=== PATIENT | female | born 1965 | race Caucasian/White ===

== ENCOUNTER 2018-04-01 13:41 | Observation (INO) ==
--- NOTE | 2018-04-01 14:01 | Cat Scan Report ---
History: Acute stroke symptoms TECHNIQUE: The brain was imaged without contrast at 2.5 mm intervals. Radiation exposure was limited using dose reduction technology. FINDINGS: The brain appears normal without evidence of hemorrhage, infarct, edema or mass effect. No degenerative change is present. The ventricles and cisterns are normal. Comparison with the recent brain MRI done on 02/25/18 shows no significant change. IMPRESSION: Normal unenhanced brain CT Dr. Power was called with results at 1:56 PM Interpreted and Authenticated by: Antonio Davies 04/01/18
[2018-04-01 14:30] LABS: Basophils # (Auto) 0 K/mcL (0.0-0.3); Basophils % (Auto) 0.6 % (0.0-2.0); Eosinophils # (Auto) 0.1 K/mcL (0.0-0.7); Eosinophils % (Auto) 2.3 % (0.0-7.0); Granulocytes % (Auto) 61.3 % (38.0-78.0); Lymphocytes # (Auto) 1.2 K/mcL (1.5-4.8); Lymphocytes % (Auto) 28.1 % (15.5-49.0); Mean Corpuscular HGB Conc 33.5 g/dL (31.0-36.0); Mean Corpuscular Hemoglobin 30.2 pg (26.0-34.0); Monocytes # (Auto) 0.3 K/mcL (0.1-0.9); Monocytes % (Auto) 7.7 % (1.0-12.0); Platelet Count 237 K/mcL (140-440); Red Cell Distribution Width 14.1 % (11.5-14.5)
[2018-04-01 14:53] LABS: ALT/SGPT 11 U/l (0-40); Albumin 4.3 gm/dL (3.2-5.2); Albumin/Globulin Ratio 1.6 (1.0-2.3); Alkaline Phosphatase 87 U/L (39-117); Blood Urea Nitrogen 12 mg/dl (6-20)
--- NOTE | 2018-04-01 15:09 | Emergency Department Note ---
Neuro HPI - General Chief Complaint: Stroke Symptoms Stated Complaint: Neuro Deficits Time Seen by Provider: 04/01/18 13:51 Source: patient, EMS Mode of arrival: ambulatory Limitations: altered mental status - History of Present Illness HPI Narrative: 52-year-old female is brought in after her caregiver called ambulance. Apparently she was having some trouble last night with slurred speech and increasing weakness and her son try to call an ambulance but they did not think she needed to come in. Anyways she has a history of CVA with residual right- sided weakness but this morning was more profound when her caregiver came in at 1130. I am seeing her about 2 hours later the symptoms have essentially resolved however she does have residual right-sided weakness of the arm and leg. EMS corroborates this and reports that her symptoms are much improved. She additionally has slurred speech and some confusion which again have both improved-however it is still difficult for me to understand her-most history and review of systems are from caregiver at [facility]. NIH scale here is 1. Denies recent illness but she is having some nausea. She is on multiple psychiatric medicines for schizophrenia. - Related Data Home Medications: Home Medications Medication Instructions Recorded Confirmed Citalopram Hydrobromide [Celexa] 20 mg PO DAILY 02/26/15 04/01/18 olanzapine 10 mg tablet 10 mg PO BID 11/23/17 04/01/18 sennosides 8.6 mg-docusate sodium 1 tab PO QHS PRN 11/23/17 04/01/18 50 mg tablet trihexyphenidyl 5 mg tablet 5 mg PO HS 11/23/17 04/01/18 Acetaminophen [Tylenol] 325 mg PO Q4-6HP PRN 04/01/18 04/01/18 Aspirin [Aspirin EC] 81 mg PO DAILY 04/01/18 04/01/18 Polyethylene Glycol 3350 [Miralax] 17 gm PO DAILY 04/01/18 04/01/18 hydrOXYzine [Atarax] 25 mg PO QIDP PRN 04/01/18 04/01/18 Allergies/Adverse Reactions: Allergies Allergy/AdvReac Type Severity Reaction Status Date / Time divalproex sodium AdvReac Unknown Other Verified 02/25/18 11:45 [From [facility]] Review of Systems All systems ED: reviewed and negative except as stated. Past Medical History - Past Medical History Attestation: Yes: The following information was validated with the patient. 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 Flat affect. Mild angular colitis. Pallor. Conjunctive are clear sclerae nonicteric. No nasal discharge or congestion. Oropharynx with dry buccal mucosa. Posterior pharynx is clear. Neck is supple without lymphadenopathy or thyromegaly. No carotid bruit. Heart is regular rate and rhythm no murmur. Lungs are clear to auscultation bilaterally without wheezes rales rhonchi or respiratory distress. Abdomen soft nontender nondistended. No peritoneal signs or rigidity. +2 radial pulse. No pedal edema. Flat affect. Slurred speech unclear if this baseline very difficult to understand. Face is symmetrical. Pupils are reactive and otherwise cranial nerves are normal. Limitations: altered mental status Course Vital Signs Pulse Rate 78 04/01/18 13:43 Respiratory Rate 18 04/01/18 13:43 Pulse Oximetry (%) 99 04/01/18 13:43 Temperature 96.8 F L 04/02/18 08:30 Pulse Rate 64 04/02/18 08:30 Respiratory Rate 16 04/02/18 08:30 Blood Pressure 111/62 04/02/18 08:30 Pulse Oximetry (%) 96 04/02/18 08:30 Neuro Symptoms/Deficit - Lab Data Lab results reviewed: Yes I reviewed the patient's lab results. Result diagrams: 04/02/18 03:50 04/02/18 03:50 Lab Results 04/01/18 04/01/18 04/01/18 Range/Units 14:05 14:05 14:05 WBC 4.2 L (4.5-11.0) K/mcL RBC 4.70 (4.00-5.20) M/mcL Hgb 14.2 (12.0-15.0) g/dL Hct 42.3 (36.0-48.0) % POC Hct 41.0 (36.0-48.0) % MCV 90.0 (80.0-100.0) fL MCH 30.2 (26.0-34.0) pg MCHC 33.5 (31.0-36.0) g/dL RDW 14.1 (11.5-14.5) % Plt Count 237 (140-440) K/mcL MPV 8.9 (7.4-10.4) fL Gran % 61.3 (38.0-78.0) % Lymph % (Auto) 28.1 (15.5-49.0) % Stevens % (Auto) 7.7 (1.0-12.0) % Eos % (Auto) 2.3 (0.0-7.0) % Baso % (Auto) 0.6 (0.0-2.0) % Gran # 2.5 (1.8-8.0) K/mcL Lymph # (Auto) 1.2 L (1.5-4.8) K/mcL Stevens # (Auto) 0.3 (0.1-0.9) K/mcL Eos # (Auto) 0.1 (0.0-0.7) K/mcL Baso # (Auto) 0 (0.0-0.3) K/mcL POC PT 12.0 (11.9-14.5) sec POC INR 1.0 (0.9-1.2) APTT 26 (20-37) sec POC Sodium 141 (133-145) mmol/L Sodium 142 (133-145) mmol/L POC Potassium 4.2 (3.3-5.1) mmol/L Potassium 4.4 (3.3-5.1) mmol/L POC Chloride 106 (96-108) mmol/L Chloride 105 (96-108) mmol/L Carbon Dioxide 28 (22-30) mmol/L POC Total CO2 27 (22-30) mmol/L Anion Gap 9.0 (8-16) POC BUN 12 (6-20) mg/dl BUN 12 (6-20) mg/dl Creatinine 0.7 (0.6-1.1) mg/dl POC Creatinine 0.8 (0.6-1.1) mg/dl GFR Calculation 99 Glucose 91 (70-105) mg/dL POC Glucose 92 (70-105) mg/dL Calcium 9.5 (8.6-10.4) mg/dl POC WB Ioniz Calcium 1.20 (1.16-1.32) mmol/L Total Bilirubin 0.6 (0.0-1.0) mg/dL AST 12 (0-37) U/l ALT 11 (0-40) U/l Alkaline Phosphatase 87 (39-117) U/L Troponin T (0-0.03) ng/ml Total Protein 7.0 (5.9-8.4) gm/dL Albumin 4.3 (3.2-5.2) gm/dL Globulin 2.7 (2.2-3.7) gm/dL Albumin/Globulin Ratio 1.6 (1.0-2.3) Urine Color Urine Appearance Urine pH (5.0-9.0) Ur Specific [place] (1.000-1.035) Urine Protein (NEG) mg/dL Urine Glucose (UA) (NEG) mg/dL Urine Ketones (NEG) mg/dL Urine Occult Blood (<0.03) mg/dL Urine Nitrate (NEG) Urine Bilirubin (NEG) mg/dL Urine Urobilinogen (NEG) mg/dL Ur Leukocyte Esterase (NEG) /uL Ur Culture Indicated? 04/01/18 04/01/18 Range/Units 14:05 15:55 WBC (4.5-11.0) K/mcL RBC (4.00-5.20) M/mcL Hgb (12.0-15.0) g/dL Hct (36.0-48.0) % POC Hct (36.0-48.0) % MCV (80.0-100.0) fL MCH (26.0-34.0) pg MCHC (31.0-36.0) g/dL RDW (11.5-14.5) % Plt Count (140-440) K/mcL MPV (7.4-10.4) fL Gran % (38.0-78.0) % Lymph % (Auto) (15.5-49.0) % Stevens % (Auto) (1.0-12.0) % Eos % (Auto) (0.0-7.0) % Baso % (Auto) (0.0-2.0) % Gran # (1.8-8.0) K/mcL Lymph # (Auto) (1.5-4.8) K/mcL Stevens # (Auto) (0.1-0.9) K/mcL Eos # (Auto) (0.0-0.7) K/mcL Baso # (Auto) (0.0-0.3) K/mcL POC PT (11.9-14.5) sec POC INR (0.9-1.2) APTT (20-37) sec POC Sodium (133-145) mmol/L Sodium (133-145) mmol/L POC Potassium (3.3-5.1) mmol/L Potassium (3.3-5.1) mmol/L POC Chloride (96-108) mmol/L Chloride (96-108) mmol/L Carbon Dioxide (22-30) mmol/L POC Total CO2 (22-30) mmol/L Anion Gap (8-16) POC BUN (6-20) mg/dl BUN (6-20) mg/dl Creatinine (0.6-1.1) mg/dl POC Creatinine (0.6-1.1) mg/dl GFR Calculation Glucose (70-105) mg/dL POC Glucose (70-105) mg/dL Calcium (8.6-10.4) mg/dl POC WB Ioniz Calcium (1.16-1.32) mmol/L Total Bilirubin (0.0-1.0) mg/dL AST (0-37) U/l ALT (0-40) U/l Alkaline Phosphatase (39-117) U/L Troponin T < 0.01 (0-0.03) ng/ml Total Protein (5.9-8.4) gm/dL Albumin (3.2-5.2) gm/dL Globulin (2.2-3.7) gm/dL Albumin/Globulin Ratio (1.0-2.3) Urine Color Straw Urine Appearance Hazy Urine pH 8.0 (5.0-9.0) Ur Specific [place] 1.008 (1.000-1.035) Urine Protein Neg (NEG) mg/dL Urine Glucose (UA) Negative (NEG) mg/dL Urine Ketones Neg (NEG) mg/dL Urine Occult Blood Neg (<0.03) mg/dL Urine Nitrate Neg (NEG) Urine Bilirubin Neg (NEG) mg/dL Urine Urobilinogen Neg (NEG) mg/dL Ur Leukocyte Esterase Neg (NEG) /uL Ur Culture Indicated? No - Radiology Data Radiology results reviewed: Yes I reviewed the patient's radiology results. CT the head is negative for acute pathology. Chest x-ray no acute cardia pulmonary disease - EKG Data EKG attestation: Yes I reviewed and interpreted this EKG. EKG results narrative: EKG shows a rate of 68 borderline long QT but otherwise no evidence of ischemia Disposition Pt seen by TOUR CONSULTANT/PA only: No Clinical Impression: TIA (transient ischemic attack), Slurred speech Summary: Her symptoms have resolved and her NIH score was 1-most likely a TIA. ABCD2 to score was 5 please see nursing documentation. On review of her record it does appear that there is been 2 prior episodes like this and she does have residual right-sided weakness on initial exam. Concerned that she needs further workup and inpatient care. Discussed her case with Dr. Lang, neuro telestroke, who agreed the patient should be kept here for further workup and did not need TPA or urgent transfer. Discussed her case with Dr. Echols the hospitalist who agreed to accept the patient for further care and evaluation Disposition: Xfer As Inpt ([facility]) Condition: Fair
[2018-04-01 16:48] LABS: Appearance,Urine HAZY; Bilirubin,Urine NEG (NEG); Color,Urine STRAW; Glucose,Urine (UA) NEGATIVE (NEG); Leukocyte Esterase,Urine NEG /uL (NEG); Protein,Urine NEG (NEG); Specific Gravity,Urine 1.008 (1.000-1.035); Urine Blood NEG mg/dL (<0.03); Urobilinogen,Urine NEG (NEG)
--- NOTE | 2018-04-01 17:12 | Internal Med History&Physical ---
Medical - H&P: HPI Patient information: Note initiated : 04/01/18 at 5:08 pm Service Date, if different from initiated Date: [] Patient: Elizabeth Portillo a 52 y/o F admitted on for Neuro Deficits. Chief Complaint: [] History of present illness: Ms. Portillo is a 52 year old F with h/o cva in the past, ? 3 yrs ago, schizophrenia, presents to the ER for evaluation of weakness. The history is obtained by speaking with the patient and the patients son. The history provided by the ER provider/ EMS is diffrerent than the history provided to me. The patient speaks softly but rapidly and is difficult to understand her clearly at times. The patient notes that she was weak last night, confused? she was unable to raise both hands, felt like a stroke? EMS Was called and she was evaluated .By the time EMS arrived and was checking her, her symptoms had resolved. She refused to to to the ER last night, as her symptoms had resolved? This morning the day care center director noted that the patient was weak again, no neurological deficit reported to me, but had some left sided sharp chest and therefore she decided to come to the ER. According to the ER provider/ EMS the patient was brought in for altered mental status with some drooling, she definitely had right-sided weakness by the evaluation by the ED provider. This has completely resolved. NIH score was 1 In the ER patient was afebrile, hemodynamically stable, White count 4.2, hemoglobin 14 platelet 237, INR 1.0, electrolytes unremarkable urine analysis negative EKG was normal sinus rhythm no acute ST-T wave changes head CT was negative. Patient has had some neurological symptoms in the past MRI head was negative. She seems not to be on aspirin or statin. All systems: reviewed and no additional remarkable complaints except as stated ( as per HPI) Medical - H&P: PMH Medical history: schizophrenia htn cva ? Pertinent family history: mother with heart issues? Social history: lives with help at home non smoker no etoh no recreational drugs Medical - H&P: Meds Home Medications Medication Instructions Recorded Confirmed Type Citalopram Hydrobromide [Celexa] 20 mg PO DAILY 02/26/15 04/01/18 History olanzapine 10 mg tablet 10 mg PO BID 11/23/17 04/01/18 History sennosides 8.6 mg-docusate sodium 1 tab PO QHS PRN 11/23/17 04/01/18 History 50 mg tablet trihexyphenidyl 5 mg tablet 5 mg PO HS 11/23/17 04/01/18 History hydrOXYzine [Atarax] 25 mg PO QIDP PRN 04/01/18 04/01/18 History Allergies Allergy/AdvReac Type Severity Reaction Status Date / Time divalproex sodium AdvReac Unknown Other Verified 02/25/18 11:45 [From [facility]] Medical - H&P: Exam - Constitutional Vitals: Temp Pulse Resp BP Pulse Ox 97.9 F 62 18 144/89 98 04/01/18 16:22 04/01/18 16:31 04/01/18 16:31 04/01/18 16:31 04/01/18 16:31 Exam: GENERAL: The patient is a well-developed, well-nourished in no apparent distress. Is alert and oriented x3. VITAL SIGNS: Reviewed and as noted elsewhere. HEENT: Head is normocephalic and atraumatic. Extraocular muscles are intact. Pupils are equal, round, and reactive to light. Nares appeared normal. Mouth appears any without lesions. Mucous membranes are moist. NECK: Normal to inspection, Supple, No lymphadenopathy or thyromegaly. LUNGS: Air entry equal on both sides, no wheezing, crackles or rhonchi noted. No accessory muscles of respiration HEART: Regular rate and rhythm normal, S1 and S2 heard, no Gallop, S3 or Rub Noted, No Gross murmur heard. ABDOMEN: Soft, nontender, and nondistended. Positive bowel sounds. No hepatosplenomegaly was noted. EXTREMITIES: No cyanosis, clubbing, rash, lesions or edema. NEUROLOGIC: Cranial nerves II through XII are intact. upper extremity 5/5, lower extremity 5/5, DTR knee, bicepts and brachioradialist 2++, tone normal, normal coordination. Masked facies. PSYCHIATRIC: flat affect,no agitation. SKIN: No ulceration or wounds noted, No jaundice, No rash noted. Medical - H&P: Reslt - Labs CBC & Chem 7: 04/01/18 14:05 04/01/18 14:05 Labs: Short CBC 04/01/18 Range/Units 14:05 WBC 4.2 L (4.5-11.0) K/mcL Hgb 14.2 (12.0-15.0) g/dL Hct 42.3 (36.0-48.0) % Plt Count 237 (140-440) K/mcL BMP 04/01/18 14:05 Sodium 142 Potassium 4.4 Chloride 105 Carbon Dioxide 28 BUN 12 Creatinine 0.7 Glucose 91 Calcium 9.5 Cardiac Enzymes 04/01/18 Range/Units 14:05 Troponin T < 0.01 (0-0.03) ng/ml Liver Function 04/01/18 Range/Units 14:05 Total Bilirubin 0.6 (0.0-1.0) mg/dL AST 12 (0-37) U/l ALT 11 (0-40) U/l Alkaline Phosphatase 87 (39-117) U/L Albumin 4.3 (3.2-5.2) gm/dL Urine 04/01/18 Range/Units 15:55 Urine Color Straw Urine Appearance Hazy Urine pH 8.0 (5.0-9.0) Ur Specific [place] 1.008 (1.000-1.035) Urine Protein Neg (NEG) mg/dL Urine Glucose (UA) Negative (NEG) mg/dL Medical - H&P: A/P - Narrative A/P Narrative: A/P Altered mental status- resolved, etiology? tia ? TIA?- no clear history to suggest neurovascular involvement, however given ER provider noting that there was a right sided weakness, will monitor and expedite workup for TIA/ CVA, NEck and head CTA, Echo and monitor on tele, check tsh, a1c lpid panel asa 81 and statin atorvastatin for secondary cva prophylaxis. 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 dvt hep Full code Cardiac diet. OT/PT/ST eval
[2018-04-01] MEDS ORDERED: IOPAMIDOL 100 ML BOTTLE IV ONE (17:26)
[2018-04-01] MEDS ORDERED: ACETAMINOPHEN 325 MG TABLET PO PRN (17:45)
[2018-04-01] MEDS ORDERED: ONDANSETRON 4 MG/2 ML VIAL IV PRN (17:45)
[2018-04-01] MEDS ORDERED: NALOXONE HCL 0.4 MG/ML VIAL IV PRN (17:45)
--- NOTE | 2018-04-01 18:52 | Cat Scan Report ---
History: New stroke symptoms TECHNIQUE: 80 cc of Isovue-370 was injected intravenously. Arterial phase images were acquired from the aortic arch to the top of the head. Reconstructions were created of the head and neck separately using sagittal, coronal and MIPS projections. FINDINGS: There is a small plaque along the top of the aortic arch. The aorta is normal in caliber. Great vessels arising from the aorta are normal. The common carotids and carotid bifurcations are normal without evidence of plaque formation, stenosis or occlusion. Internal and external carotids are normal and symmetric. The vertebral arteries are also normal. Incidentally noted is a 2.4 x 2.5 cm partially cystic well-circumscribed mass in the left lobe of the thyroid. No adenopathy is present in the neck. Head: The intracranial arterial circulation is normal without evidence of stenosis, vascular occlusion, aneurysm or vascular malformation. No enhancing lesion is present within the brain. No infarct is detected. There is also no hemorrhage or mass. The ventricles are normal in size. IMPRESSION: Normal CT angiogram of the head and neck. 2.4 x 2.5 cm nodule in the left lobe of the thyroid. This is probably a degenerating adenoma Interpreted and Authenticated by: Antonio Davies 04/01/18
[2018-04-01] MEDS ORDERED: hydrOXYzine 25 MG TABLET PO PRN (20:09)
[2018-04-01] MEDS ORDERED: POLYETHYLENE GLYCOL 3350 17 GM PACKET PO PRN (20:14)
[2018-04-01] MEDS: HEPARIN 5,000 UNIT/ML VIAL SQ SCH (20:48)
[2018-04-01] MEDS: ATORVASTATIN 20 MG TABLET PO SCH (20:48)
[2018-04-01] MEDS: 0.9 % SODIUM CHLORIDE 10 ML SYRINGE IV SCH (20:49)
[2018-04-01] MEDS: OLANZapine 5 MG TABLET PO SCH (20:49)
[2018-04-02 05:18] LABS: Basophils # (Auto) 0 K/mcL (0.0-0.3); Basophils % (Auto) 0.7 % (0.0-2.0); Eosinophils # (Auto) 0.2 K/mcL (0.0-0.7); Eosinophils % (Auto) 2.9 % (0.0-7.0); Granulocytes % (Auto) 53.1 % (38.0-78.0); Lymphocytes # (Auto) 2.1 K/mcL (1.5-4.8); Lymphocytes % (Auto) 36.6 % (15.5-49.0); Mean Cell Volume 90.2 fL (80.0-100.0); Mean Corpuscular HGB Conc 34.7 g/dL (31.0-36.0); Mean Corpuscular Hemoglobin 31.3 pg (26.0-34.0); Monocytes # (Auto) 0.4 K/mcL (0.1-0.9); Monocytes % (Auto) 6.7 % (1.0-12.0); Platelet Count 225 K/mcL (140-440); RBC 4.34 M/mcL (4.00-5.20); Red Cell Distribution Width 13.6 % (11.5-14.5)
[2018-04-02 05:35] LABS: ALT/SGPT 8 U/l (0-40); Albumin 3.9 gm/dL (3.2-5.2); Albumin/Globulin Ratio 1.8 (1.0-2.3); Alkaline Phosphatase 79 U/L (39-117); Bilirubin,Direct < 0.2 mg/dL (0.0-0.3); Blood Urea Nitrogen 12 mg/dl (6-20); Gamma Glutamyl Transpeptidase 10 U/L (5-36); HDL Cholesterol 78 mg/dl (>40); LDL Cholesterol,Calculated 103 mg/dl (SEE CHART); Uric Acid 5.1 mg/dL (2.5-8.0)
[2018-04-02] MEDS: 0.9 % SODIUM CHLORIDE 10 ML SYRINGE IV SCH ×3 (06:07→21:23)
[2018-04-02 06:30] LABS: Estimated Average Glucose(eAG) 100 mg/dL; Hemoglobin A1C 5.1 % HGB (4.0-6.0)
[2018-04-02] MEDS ORDERED: hydrOXYzine 25 MG TABLET PO PRN (06:34)
[2018-04-02] MEDS ORDERED: SENNOSIDES/DOCUSATE SODIUM 1 TAB TABLET PO PRN (06:34)
--- NOTE | 2018-04-02 07:06 | Internal Med History&Physical ---
Medical - H&P: HPI Patient information: Note initiated : 04/02/18 at 7:00 am Service Date, if different from initiated Date: [] Patient: Elizabeth Portillo a 52 y/o F admitted on 04/01/18 for Neuro Deficits. Chief Complaint: [] History of present illness: Ms. Portillo is a 52 year old F who presents today with right sided weakness for 12h and chest pain felt 4h ago. She states that last night (03/31) she had bilateral upper extremity weakness and felt as though she could not move her upper body. An ambulance was called, she was evaluated and deemed to not be having any stroke symptoms by the EMT. She did not come to the ER them. The next morning, her cash specialist noticed some right-sided weakness at about 11:30 and the patient mumbling more than usual. She was not alarmed until the patient said she was having chest pain- which prompted her visit to the ER. She stated that the pain was sharp, retrosternal and lasting 20m. She has not experienced any more chest pain since that one occurrence and states that she does not feel any more right sided weakness. Review of systems: Gen: denies sick contacts, fever, wt. loss. Confirms chills HEENT: Denies blurry vision, photophobia, sore throat Resp: Denies SOB, cough. Confirms sputum Card: Denies orthopnea, LE edema. syncope, palpatations. confirms chest pain GI: denies N/V/D abdominal pain and melena. Confirms constipation and heartburn : Denies dysuria, hematuria. Confirms frequency Endo: Denies excessive thirst Skin: Denies rash or pruitis MSK: Denies arthralgias, swelling, myalgias Hem: denies bruising or bleeding Neuro: Confirms headache and memory loss Medical - H&P: PMH Medical history: Anxiety attacks CVA 2015 Schizophrenia Surgical history: None Pertinent family history: Mother has dementia and lives in an assisted care facility. DM and heart disease in siblings Social history: Never a smoker Former drinker, although never heavy no illicit drugs, no marijuana her past career was as a patient cash specialist Functional capacity: independent ambulation (She is able to do most ADLs by herself, although slowly. She needs help getting dressed in the mornings.) Medical - H&P: Meds Home Medications Medication Instructions Recorded Confirmed Type Citalopram Hydrobromide [Celexa] 20 mg PO DAILY 02/26/15 04/01/18 History olanzapine 10 mg tablet 10 mg PO BID 11/23/17 04/01/18 History sennosides 8.6 mg-docusate sodium 1 tab PO QHS PRN 11/23/17 04/01/18 History 50 mg tablet trihexyphenidyl 5 mg tablet 5 mg PO HS 11/23/17 04/01/18 History Acetaminophen [Tylenol] 325 mg PO Q4-6HP PRN 04/01/18 04/01/18 History Aspirin [Aspirin EC] 81 mg PO DAILY 04/01/18 04/01/18 History Polyethylene Glycol 3350 [Miralax] 17 gm PO DAILY 04/01/18 04/01/18 History hydrOXYzine [Atarax] 25 mg PO QIDP PRN 04/01/18 04/01/18 History Allergies Allergy/AdvReac Type Severity Reaction Status Date / Time divalproex sodium AdvReac Unknown Other Verified 02/25/18 11:45 [From [facility]] Medical - H&P: Exam - Constitutional Vitals: Temp Pulse Resp BP Pulse Ox 97.0 F 50 L 14 107/62 96 04/02/18 04:00 04/02/18 04:00 04/02/18 04:00 04/02/18 04:00 04/02/18 04:00 General appearance: cooperative, no acute distress - Eye Eye exam: Present: PERRL - Expanded ENT Exam Mouth exam: Present: moist Throat exam: Present: normal inspection - Respiratory Additional comments: Some mild crackles at the left posterior lower lung - Cardiovascular Cardiovascular exam: Present: normal rate and rhythm, +S1, +S2 - GI/Abdominal GI/Abdominal exam: Present: normal bowel sounds, soft. Absent: guarding, rebound, tenderness - Extremities Exam Extremities exam: Present: normal inspection. Absent: pedal edema - Neurological Exam Neurological exam: Present: CN II-XII intact, oriented X3, reflexes normal - Expanded Neurological Exam Sensory exam: lower extremity light touch: Normal, lower extremity pin prick: Normal, upper extremity light touch: Normal, upper extremity pin prick: Normal Neuro motor strength exam: LUE: 5, RUE: 5, LLE: 5, RLE: 5 - Psychiatric Psychiatric exam: Present: flat affect Medical - H&P: Reslt - Labs CBC & Chem 7: 04/02/18 03:50 04/02/18 03:50 Labs: Short CBC 04/01/18 04/02/18 Range/Units 14:05 03:50 WBC 4.2 L 5.7 (4.5-11.0) K/mcL Hgb 14.2 13.6 (12.0-15.0) g/dL Hct 42.3 39.1 (36.0-48.0) % Plt Count 237 225 (140-440) K/mcL BMP 04/01/18 04/02/18 14:05 03:50 Sodium 142 141 Potassium 4.4 3.9 Chloride 105 103 Carbon Dioxide 28 24 BUN 12 12 Creatinine 0.7 0.8 Glucose 91 89 Calcium 9.5 9.3 Cardiac Enzymes 04/01/18 04/01/18 Range/Units 14:05 21:55 Troponin T < 0.01 < 0.01 (0-0.03) ng/ml Liver Function 04/01/18 04/02/18 Range/Units 14:05 03:50 Total Bilirubin 0.6 0.6 (0.0-1.0) mg/dL Direct Bilirubin < 0.2 (0.0-0.3) mg/dL GGT 10 (5-36) U/L AST 12 11 (0-37) U/l ALT 11 8 (0-40) U/l Alkaline Phosphatase 87 79 (39-117) U/L Albumin 4.3 3.9 (3.2-5.2) gm/dL Urine 04/01/18 Range/Units 15:55 Urine Color Straw Urine Appearance Hazy Urine pH 8.0 (5.0-9.0) Ur Specific [place] 1.008 (1.000-1.035) Urine Protein Neg (NEG) mg/dL Urine Glucose (UA) Negative (NEG) mg/dL Medical - H&P: A/P - Narrative A/P Narrative: Left sided weakness DDx includes TIA, stroke, seizure, migraine, anxiety attack No neurological deficits found on exam, although the paramedics and ER physician documented as R sided weakness. Normal head and neck CVA, normal head CT. We will work the patient up for TIA and hold for observation for 24h Add 81mg aspirin po daily begin treatment with a high intensity statin po daily BP is within acceptable range telecommunications linesworker to evaluate for arrhythmias TTE to evaluate for vegetations Chest pain DDx includes ID, PE, , costochondritis, psychogenic No recurrence of chest pain since initial occurrence the morning of 04/01 Her troponin and ECG were both ruled as normal. ICU monitoring TTE to evaluate valvular function High intensity statin Blood pressure management Medical - H&P: Qual - Stroke Onset of Symptoms Date: 03/31/18 Onset of Symptoms Time: 21:00 Symptom Onset Unknown: No - VTE Deep Vein Thrombosis/Pulmonary Embolism Present on Admission: No
--- NOTE | 2018-04-02 07:41 | XRay Report ---
HISTORY: Altered mental status with neurologic deficits FINDINGS: The lungs are clear. The heart, mediastinum, william, pleura and bones are normal. There has been no significant change since 02/25/18. IMPRESSION: Normal chest Interpreted and Authenticated by: Antonio Davies 04/02/18
[2018-04-02] MEDS ORDERED: OLANZAPINE 10 MG PO SCH (09:00)
[2018-04-02] MEDS ORDERED: CITALOPRAM 10 MG TABLET PO SCH (09:00)
--- NOTE | 2018-04-02 09:52 | Internal Med Progress Note ---
Medical - PN: Subj Patient information: Note initiated : 04/02/18 at 9:45 am Service Date, if different from initiated Date: [] Patient: Elizabeth Portillo a 52 y/o F admitted on 04/01/18 for Neuro Deficits. Chief Complaint: [] Interval history: Ms. Portillo is a 52 year old F with h/o cva in the past, ? 3 yrs ago, schizophrenia, presents to the ER for evaluation of weakness. The history is obtained by speaking with the patient and the patients son. The history provided by the ER provider/ EMS is diffrerent than the history provided to me. The patient speaks softly but rapidly and is difficult to understand her clearly at times. The patient notes that she was weak last night, confused? she was unable to raise both hands, felt like a stroke? EMS Was called and she was evaluated .By the time EMS arrived and was checking her, her symptoms had resolved. She refused to to to the ER last night, as her symptoms had resolved? This morning the director of critical care noted that the patient was weak again, no neurological deficit reported to me, but had some left sided sharp chest and therefore she decided to come to the ER. According to the ER provider/ EMS the patient was brought in for altered mental status with some drooling, she definitely had right-sided weakness by the evaluation by the ED provider. This has completely resolved. NIH score was 1 In the ER patient was afebrile, hemodynamically stable, White count 4.2, hemoglobin 14 platelet 237, INR 1.0, electrolytes unremarkable urine analysis negative EKG was normal sinus rhythm no acute ST-T wave changes head CT was negative. Patient has had some neurological symptoms in the past MRI head was negative. She seems not to be on aspirin or statin. 04/02 Patient seen examined, no ac jah overnight issues sleepy this AM but wakes up when asked and follows commands no change in neurological status head ct neg, cta head and neck is negative, echo pending was 2 pt assist last night? will see how she does with OT/PT no events on tele, bradycaridic when sleeping, Pertinent ROS: Denies headache, dizziness Denies chest pain, palpitations Denies cough or shortness of breath Denies abdominal pain, nausea or vomiting. - Constitutional Vitals: Vital Signs Temp Pulse Resp BP Pulse Ox 96.8 F L 64 16 111/62 96 04/02/18 08:30 04/02/18 08:30 04/02/18 08:30 04/02/18 08:30 04/02/18 08:30 Period Temp Pulse Resp BP Sys/Membreno Pulse Ox Last 24 Hr 96.8 F-98.7 F 38-78 9-20 107-145/62-99 95-100 Intake and Output 04/01/18 04/02/18 04/02/18 21:59 05:59 13:59 Intake Total 700 / 700 510 / 510 Balance 700 / 700 510 / 510 Weight 192 lb 8 oz Intake & Output: Intake & Output 04/01/18 04/02/18 04/02/18 21:59 05:59 13:59 Intake Total 700 / 700 510 / 510 Balance 700 / 700 510 / 510 Weight 192 lb 8 oz Intake: Oral 700 / 700 510 / 510 Other: Meal [place] Feeding Ability Independent # Voids 1 Exam: Constitutional; Afebrile, cooperative, alert, not in distress. Eyes- No icterus, , No periorbital swelling Ears- Ext ear normal, hearing normal to conversation. Neck- Midline trachea, supple Respiratory system: Air Entry equal on both sides, No crackles or wheezing, no rhonchi. CVS- Rate rhythm regular, S1,S2 heard, no gallop, no rub. Abdomen- Soft nontender abdomen, no organomegaly, no tenderness, no guarding or rigidity, SCIENCE EDITOR- AOOx3, moving all extremities, no gross focal deficit noted. masked facies , Medical - PN: Obj Da - Labs CBC & Chem 7: 04/02/18 03:50 04/02/18 03:50 Labs: Abnormal Lab Results 04/02/18 04/01/18 03:50 14:05 WBC 4.2 L Lymph # (Auto) 1.2 L LDL Cholesterol, Calc 103 H Meds: Medications Acetaminophen (Tylenol) 650 mg PO Q6HP PRN PRN Reason: PAIN/FEVER > 101 Last Admin: 04/01/18 22:30 Dose: 650 mg Aspirin (Aspirin) 81 mg PO DAILY [facility] Aspirin (Ecotrin) 81 mg PO DAILY [facility] Atorvastatin Calcium (Lipitor) 40 mg PO HS [facility] Last Admin: 04/01/18 20:48 Dose: 40 mg Citalopram Hydrobromide (Celexa) 20 mg PO DAILY [facility] Heparin Sodium (Porcine) (Heparin) 5,000 unit SQ Q12 [facility] Last Admin: 04/01/18 20:48 Dose: 5,000 unit Hydroxyzine HCl (Atarax) 25 mg PO QIDP PRN PRN Reason: Allergic Symptoms Naloxone HCl (Narcan) 0.1 mg IV Q2MIN PRN PRN Reason: Opiate Reversal Olanzapine (Zyprexa) 10 mg PO BID [facility] Last Admin: 04/01/18 20:49 Dose: 10 mg Ondansetron HCl (Zofran) 4 mg IV Q4HP PRN PRN Reason: Nausea And Vomiting Trihexyphenidyl 5mg (Tab) 1 dose PO QHS [facility] Last Admin: 04/01/18 20:49 Dose: Not Given Polyethylene Glycol (Miralax) 17 gm PO DAILY [facility] Senna/Docusate Sodium (Senna Plus Tablet) 1 tab PO DAILY [facility] Senna/Docusate Sodium (Senna Plus Tablet) 1 tab PO QHS PRN PRN Reason: Constipation Sodium Chloride (Saline Flush) 10 ml IV Q8 [facility] Last Admin: 04/02/18 06:07 Dose: 10 ml Medical - PN: A/P - Time Spent With Patient Total time spent is greater than 50% in coordination of care (as documented) at patient's floor/unit and/or counseling patient: - Narrative A/P Narrative: A/P Altered mental status- resolved, etiology? tia ? TIA?- no clear history to suggest neurovascular involvement, however given ER provider noting that there was a right sided weakness, Head CT eng, CTA neg, on asa and statin now, ldl 103, target goal of < 70 pt seems was on asa 81. 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 dvt hep Full code Cardiac diet. anticipate d/c snf Medical - PN: Qual - Stroke Onset of Symptoms Date: 03/31/18 Onset of Symptoms Time: 21:00 Symptom Onset Unknown: No - VTE Deep Vein Thrombosis/Pulmonary Embolism Present on Admission: No
[2018-04-02] MEDS: POLYETHYLENE GLYCOL 3350 17 GM PACKET PO SCH (09:53)
[2018-04-02] MEDS: CITALOPRAM 20 MG TABLET PO SCH (09:54)
[2018-04-02] MEDS: ASPIRIN 325 MG ENTERIC COATED TABLET PO SCH (09:54)
[2018-04-02] MEDS: ASPIRIN 81 MG TAB.CHEW PO SCH (09:54)
[2018-04-02] MEDS: HEPARIN 5,000 UNIT/ML VIAL SQ SCH ×2 (09:54→20:43)
[2018-04-02] MEDS: OLANZapine 5 MG TABLET PO SCH ×2 (09:54→20:43)
[2018-04-02] MEDS: SENNOSIDES/DOCUSATE SODIUM 1 TAB TABLET PO SCH (09:54)
[2018-04-02] MEDS: ATORVASTATIN 20 MG TABLET PO SCH (20:44)
[2018-04-02] MEDS ORDERED: TRIHEXYPHENIDYL HCL PO SCH (21:00)
[2018-04-03 05:37] LABS: Basophils # (Auto) 0 K/mcL (0.0-0.3); Basophils % (Auto) 0.3 % (0.0-2.0); Eosinophils # (Auto) 0.1 K/mcL (0.0-0.7); Eosinophils % (Auto) 1.9 % (0.0-7.0); Granulocytes % (Auto) 65.8 % (38.0-78.0); Lymphocytes # (Auto) 1.7 K/mcL (1.5-4.8); Lymphocytes % (Auto) 25.9 % (15.5-49.0); Mean Cell Volume 90.5 fL (80.0-100.0); Mean Corpuscular HGB Conc 33.7 g/dL (31.0-36.0); Mean Corpuscular Hemoglobin 30.5 pg (26.0-34.0); Monocytes # (Auto) 0.4 K/mcL (0.1-0.9); Monocytes % (Auto) 6.1 % (1.0-12.0); Platelet Count 232 K/mcL (140-440); RBC 4.46 M/mcL (4.00-5.20); Red Cell Distribution Width 13.9 % (11.5-14.5)
[2018-04-03 05:58] LABS: ALT/SGPT 8 U/l (0-40); Albumin 3.8 gm/dL (3.2-5.2); Albumin/Globulin Ratio 1.5 (1.0-2.3); Alkaline Phosphatase 80 U/L (39-117); Bilirubin,Direct < 0.2 mg/dL (0.0-0.3); Blood Urea Nitrogen 11 mg/dl (6-20); Gamma Glutamyl Transpeptidase 10 U/L (5-36); Uric Acid 5.4 mg/dL (2.5-8.0)
[2018-04-03] MEDS: 0.9 % SODIUM CHLORIDE 10 ML SYRINGE IV SCH (06:03)
[2018-04-03] MEDS: CITALOPRAM 20 MG TABLET PO SCH (08:38)
[2018-04-03] MEDS: ASPIRIN 81 MG TAB.CHEW PO SCH (08:38)
[2018-04-03] MEDS: SENNOSIDES/DOCUSATE SODIUM 1 TAB TABLET PO SCH (08:39)
[2018-04-03] MEDS: POLYETHYLENE GLYCOL 3350 17 GM PACKET PO SCH (08:39)
[2018-04-03] MEDS: HEPARIN 5,000 UNIT/ML VIAL SQ SCH (08:39)
[2018-04-03] MEDS: ASPIRIN 325 MG ENTERIC COATED TABLET PO SCH (08:42)
[2018-04-03] MEDS: OLANZapine 5 MG TABLET PO SCH (08:43)
--- NOTE | 2018-04-03 10:41 | Discharge Summary ---
Medical - DS: Prov Patient information: Note initiated : 04/03/18 at 10:36 am Service Date, if different from initiated Date: [] Patient: Elizabeth Portillo 52 y/o F admitted on 04/01/18 for Neuro Deficits. Chief Complaint: [] Date of admission: 04/01/18 17:25 Discharge date: 04/03/18 Primary care physician: Renetta Carreon Admitting clinician: Jocelin Echols Discharging clinician: Jocelin Echols Medical - DS: Meds - Discharge Medications Prescriptions: Atorvastatin [Lipitor] 40 mg PO HS #90 tab Active and Home Medications: Home Medications Citalopram Hydrobromide [Celexa] 20 mg PO DAILY 02/26/15 [History Confirmed 03/12 Last Taken 04/01/18] olanzapine 10 mg tablet 10 mg PO BID 11/23/17 [History Confirmed 04/01/18 Last Taken 04/01/18] sennosides 8.6 mg-docusate sodium 50 mg tablet 1 tab PO QHS PRN 11/23/17 [ History Confirmed 04/01/18 Last Taken 03/31/18] trihexyphenidyl 5 mg tablet 5 mg PO HS 11/23/17 [History Confirmed 04/01/18 Last Taken 03/31/18] Acetaminophen [Tylenol] 325 mg PO Q4-6HP PRN 04/01/18 [History Confirmed Last Taken 03/30/18] Aspirin [Aspirin EC] 81 mg PO DAILY 04/01/18 [History Confirmed 04/01/18 Last Taken 03/25/18] Polyethylene Glycol 3350 [Miralax] 17 gm PO DAILY 04/01/18 [History Confirmed Last Taken 04/01/18] hydrOXYzine [Atarax] 25 mg PO QIDP PRN 04/01/18 [History Confirmed 04/01/18 Last Taken 03/31/18] Medical - DS: Hosp Hospital course: Ms. Portillo is a 52 year old F with h/o cva in the past, ? 3 yrs ago, schizophrenia, presentsed to the ER for evaluation of weakness. The history is obtained by speaking with the patient and the patients son. The history provided by the ER provider/ EMS is diffrerent than the history provided to me. The patient speaks softly but rapidly and is difficult to understand her clearly at times. The patient notes that she was weak last night, confused? she was unable to raise both hands, felt like a stroke? EMS Was called and she was evaluated .By the time EMS arrived and was checking her, her symptoms had resolved. She refused to to to the ER last night, as her symptoms had resolved? This morning the foster care worker noted that the patient was weak again, no neurological deficit reported to me, but had some left sided sharp chest and therefore she decided to come to the ER. According to the ER provider/ EMS the patient was brought in for altered mental status with some drooling, she definitely had right-sided weakness by the evaluation by the ED provider. This has completely resolved. NIH score was 1 In the ER patient was afebrile, hemodynamically stable, White count 4.2, hemoglobin 14 platelet 237, INR 1.0, electrolytes unremarkable urine analysis negative EKG was normal sinus rhythm no acute ST-T wave changes head CT was negative. Patient has had some neurological symptoms in the past MRI head was negative. The patient was admitted to the hospital for further observation as the presumed ABCD score was high at 5 Patient had Head and Neck CTA which was reported as negative. Echo normal lvef, no thrombus no e/o for CVA, monitored on tele for 2 nights without any significant arrythmia. 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 She is on an oral anticholinergic drug. I feel that the patient will benefit from an evaluation by a psychiatrist , and if possible a neurologist for further adjustment of her psych meds. Will advise PCP to consider a referral to Psychiatry/ Neurology The rest of the stay in the hospital was unremarkable. Discharge diagnosis: AMS/ TIA? - Time Spent with Patient Total time spent providing and/or coordinating discharge services: Greater than 30 minutes Medical - DS: Exam - Constitutional Vitals: Vital Signs Temp Pulse Pulse Resp BP BP Pulse Ox 04/03/18 06:55 96.6 F L 65 14 137/91 95 04/03/18 04:00 97.2 F 68 16 114/78 96 04/02/18 23:48 98.1 F 76 20 125/76 95 04/02/18 20:00 98.6 F 70 18 135/86 97 04/02/18 17:15 68 04/02/18 16:15 97.9 F 69 18 119/82 98 04/02/18 16:00 73 04/02/18 14:45 71 04/02/18 13:30 74 04/02/18 12:40 97.7 F 77 18 127/89 96 04/02/18 12:00 76 Intake and Output 04/02/18 04/03/18 04/03/18 21:59 05:59 13:59 Intake Total 900 / 900 360 / 360 Output Total 1550 / 1550 300 / 300 350 / 350 Balance -650 / -650 60 / 60 -350 / -350 Intake: Oral 900 / 900 360 / 360 Output: Void Amount 1550 / 1550 300 / 300 350 / 350 Other: Meal Dinner Breakfast Percent of Meal Consumed 75% 100% Feeding Ability Assist with Tray Set Up Assist with Tray Set Up Stool Size Moderate Stool Color Brown Stool Consistency Soft Formed # Voids 1 1 1 # Bowel Movements 1 Weight 195 lb Additional comments: Constitutional; Afebrile, cooperative, alert, not in distress. Eyes- No icterus, , No periorbital swelling Ears- Ext ear normal, hearing normal to conversation. Neck- Midline trachea, supple Respiratory system: Air Entry equal on both sides, No crackles or wheezing, no rhonchi. CVS- Rate rhythm regular, S1,S2 heard, no gallop, no rub. Abdomen- Soft nontender abdomen, no organomegaly, no tenderness, no guarding or rigidity, GOVERNMENT CONTRACTS MANAGER- AOOx3, moving all extremities, no gross focal deficit noted. Medical - DS: Data Procedures and tests throughout hospitalization: CTA Head and Neck IMPRESSION: Normal CT angiogram of the head and neck. 2.4 x 2.5 cm nodule in the left lobe of the thyroid. 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 minimal left to right shunt flow. (no right to left shut) head CT IMPRESSION: Normal unenhanced brain CT Labs on day of discharge: Labs from last 24 hours 04/03/18 04/03/18 04:15 04:15 WBC 6.4 RBC 4.46 Hgb 13.6 Hct 40.4 MCV 90.5 MCH 30.5 MCHC 33.7 RDW 13.9 Plt Count 232 MPV 9.1 Gran % 65.8 Lymph % (Auto) 25.9 [place] % (Auto) 6.1 Eos % (Auto) 1.9 Baso % (Auto) 0.3 Gran # 4.2 Lymph # (Auto) 1.7 [place] # (Auto) 0.4 Eos # (Auto) 0.1 Baso # (Auto) 0 Sodium 141 Potassium 3.8 Chloride 104 Carbon Dioxide 25 Anion Gap 12.0 BUN 11 Creatinine 0.7 GFR Calculation 99 Glucose 87 Uric Acid 5.4 Calcium 9.2 Phosphorus 3.5 Magnesium 2.0 Total Bilirubin 0.6 Direct Bilirubin < 0.2 GGT 10 AST 10 ALT 8 Alkaline Phosphatase 80 Lactate Dehydrogenase 134 Total Protein 6.3 Albumin 3.8 Globulin 2.5 Albumin/Globulin Ratio 1.5 Triglycerides 82 Medical - DS: A/P - Patient/Caregiver Discharge Instructions Activity: increase activity as tolerated Diet: Cardiac Additional Instructions: Please take a baby aspirin 81mg once daily with food. Please take atorvastatin 40mg once daily, preferably at bed time. Go to the ER if worsening condition, chest pain, shortness of breath or any other acute concerning symptom. Follow up with PCP in 1-2 weeks Talk to your PCP with regards to a referral to a psychiatrist and or neurologist to help manage your medications. I have added atorvastatin, to your medication regime, please take all your other medications as prescribed by your regular doctor. - Follow up Plan Follow up with: Renetta Carreon MD [Primary Care Provider] - 04/17/18 8:40 am Disposition: Home, Self-Care Prognosis: Fair Rehab Potential: Fair I certify that the patient requires SNF services: No Overall status at discharge: patient is back to baseline Medical - DS: Qual - VTE Deep Vein Thrombosis/Pulmonary Embolism Present on Admission: No
== END 2018-04-03 11:58 | disposition home or self-care (01) ==
LOC: ED 13:41 → ICU 13:41
PROVIDERS: ADMIT Internal Medicine; ATTEND Internal Medicine